=== PATIENT | male | born 1955 | race African-American/Black ===

== ENCOUNTER 2021-07-29 14:55 | Emergency (ER) | payer OTHER ==
[~2021-07-29] VITALS: Ht 175.3 cm; Wt 109.1 kg
[2021-07-29] MEDS ORDERED: BENZ200C47 PO (18:13)
--- NOTE | 2021-07-29 18:13 | PHYS DOC ---
General Adult HPI: HPI: Patient is a 65-year-old male who presents to the emergency department for nasal congestion, nonproductive cough, sore throat and body aches that started this morning after shoveling snow yesterday. Patient denies fever, shortness of breath, nausea, vomiting, loss of taste or smell, chest pain. Patient's vital signs are stable he is in no acute distress. (SWEETIE FARRIS APRN) Review of Systems: Review of Systems: Constitutional: See HPI HENT: See HPI Respiratory: See HPI Cardiovascular: See HPI GI: See HPI Musculoskeletal: See HPI (SWEETIE FARRIS APRN) Physical Exam: PE: Constitutional: Well developed, well nourished, no acute distress, non-toxic appearance. [] HENT: Normocephalic, atraumatic, bilateral external ears normal, oropharynx moist, no oral exudates, nose normal. [] Eyes: PERRL, EOMI, conjunctiva normal, no discharge. [] Neck: Normal range of motion, no tenderness, supple, no stridor. [] Cardiovascular:Heart rate regular rhythm, no murmur [] Lungs & Thorax: Bilateral breath sounds clear to auscultation [] Abdomen: Bowel sounds normal, soft, no tenderness, no masses, no pulsatile ma sses. [] Skin: Warm, dry, no erythema, no rash. [] Back: Normal range of motion Extremities: No tenderness, no cyanosis, no clubbing, ROM intact, no edema. [] Neurologic: Alert and oriented X 3, normal motor function, normal sensory function, no focal deficits noted. [] Psychologic: Affect normal, judgement normal, mood normal. [] (SWEETIE FARRIS BODY BUILDER APPRENTICE) EKG: EKG: [] (SWEETIE FARRIS APRN) Radiology/Procedures: Radiology/Procedures: []PROCEDURE: PORTABLE CHEST 1V XR CHEST 1V History: Reason: cough, pui / Spl. Instructions: / History: Comparison: None. Findings: No consolidation or pleural effusion. Normal heart size. No pneumothorax. Numerous calcified pulmonary nodules with calcified hilar lymph nodes, likely prior granulomatous disease. Postop changes cervical spine. Impression: 1. No acute cardiopulmonary process. Electronically signed by: Kyle Roca DO (07/29/2021 6:15 PM) [facility] DICTATED AND SIGNED BY: KYLE ROCA DO DATE: 07/29/211813 CC: AIDEN WRAD DO; SWEETIE FARRIS APRN ~MTH0 0 (SWEETIE FARRIS APRN) Heart Score: C/O Chest Pain: No Risk Factors: Risk Factors: DM, Current or recent (<one month) smoker, HTN, HLP, family history of CAD, obesity. Risk Scores: Score 0 - 3: 2.5% MACE over next 6 weeks - Discharge Home Score 4 - 6: 20.3% MACE over next 6 weeks - Admit for Clinical Observation Score 7 - 10: 72.7% MACE over next 6 weeks - Early Invasive Strategies (SWEETIE FARRIS APRN) Course & Med Decision Making: Course & Med Decision Making Pertinent Labs and Imaging studies reviewed. (See chart for details) [] Patient presents to the emergency department for nasal congestion, nonproductive cough, sore throat and body aches started this morning. Patient's rapid influenza test was pending and we will call with results. Patient's Covid test is pending and he will be notified of the results when they become available in approximately 1 to 2 days, advised to self isolate until you receive these results. Chest x-ray showed no acute findings. Patient educated on symptomatic treatment. I discussed with patient all findings and diagnostic testing as well as the need to follow-up with PCP for further evaluation and treatment or return to the ER if any new or worsening symptoms. Strict return precautions were also discussed at length. Patient voiced understanding and agreement with the plan. Patient is hemodynamically stable at the time of disposition. (SWEETIE FARRIS APRN) Dragon Disclaimer: Dragon Disclaimer: This electronic medical record was generated, in whole or in part, using a voice recognition dictation system. (SWEETIE FARRIS APRN) Attending Co-Sign The patient was seen and interviewed as well as examined at the bedside. The chart was reviewed. The case was discussed. Agree with the plan of care. (HANNA ORTIZ DO) Departure Departure: Impression: Primary Impression: Person under investigation for COVID-19 Disposition: HOME / SELF CARE / HOMELESS Condition: GOOD Referrals: AIDEN WARD DO (PCP) Patient Instructions: Cough, Adult Additional Instructions: You were seen in the emergency department today for congestion, cough, sore throat and body aches. Your rapid influenza test is pending and you will be notified of results when they become available. Your chest x-ray showed no acute findings. We tested you in the ER for COVID-19 you will be notified of those results when they become available in approximately 1 to 2 days, please self isolate until you receive these results. For any pain or fevers take Tylenol and/or ibuprofen. For your cough you are being discharged home with medication, use this as directed. Also being discharged home with an albuterol inhaler that you can use as needed for shortness of breath. Increase your fluids and rest. Follow-up with your primary care provider tomorrow regarding your ER visit. Please return to the emergency department if you develop high fevers refractory to treatment, shortness of breath, chest pain, intractable nausea or vomiting, weakness or any new or worsening concerns. Scripts Albuterol Sulfate (PROAIR HFA INHALER) 8.5 Gm Hfa.aer.ad 2 PUFF IH PRN Q4-6HRS PRN for wheezing for 21 Days, #1 INHALER 0 Refills as needed for wheezing Prov: SWEETIE FARRIS APRN 07/29/21 Benzonatate (BENZONATATE) 200 Mg Capsule 1 CAP PO PRN TID PRN for cough for 7 Days, #21 CAP 0 Refills Prov: SWEETIE FARRIS APRN 07/29/21 SWEETIE FARRIS APRN Jul 29, 2021 18:13 HANNA ORTIZ DO Jul 31, 2021 00:43
--- NOTE | 2021-07-29 18:17 | RAD ---
XR CHEST 1V History: Reason: cough, pui / Spl. Instructions: / History: Comparison: None. Findings: No consolidation or pleural effusion. Normal heart size. No pneumothorax. Numerous calcified pulmonar y nodules with calcified hilar lymph nodes, likely prior granulomatous disease. Postop changes cervic al spine. Impression: 1. No acute cardiopulmonary process. Electronically signed by: Kyle Roca DO (07/29/2021 6:15 PM) [facility]
[2021-07-29] MEDS ORDERED: ALBU2.5V8 IH (19:03)
[2021-07-29 19:30] LABS: INFLUENZA A PATIENT NEGATIVE (NEGATIVE); INFLUENZA B PATIENT NEGATIVE (NEGATIVE)
[2021-07-29 19:38] VITALS: BP 184/98
--- NOTE | 2021-07-29 19:38 | EKG ---
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
--- NOTE | 2021-08-01 10:42 | NUR ---
PT CALLED AND ADVISED THAT THE HEALTH DEPARTMENT NOTIFIED HIM OF HIS POSITIVE COVID RESULTS. PATIENT WAS WANTING TO KNOW WHICH COVID STRAIN HE HAD. I TOLD HIM WE DON'T HAVE THAT INFORMATION.
== END 2021-07-29 19:35 | disposition home or self-care (01) ==
LOC: ER 14:55
DX: U07.1 COVID-19 (principal)
CPT/HCPCS: 71045; 87804; 93005; 99285; C9803; U0003